=== PATIENT | male | born 1950 | race Caucasian/White ===

== ENCOUNTER 2016-12-06 14:16 | Emergency (ER) | payer MEDICARE ==
[2016-12-06 14:28] VITALS: BP 163/75
[2016-12-06] MEDS ORDERED: Diphtheria,Pertussis(Acell),Tetanus Vaccine 0.5 ML SDV IM ONE (14:41)
[2016-12-06] MEDS ORDERED: Lidocaine 1% with EPINEPHrine 1:100,000 50 ML MDV INFILT ONE (14:42)
--- NOTE | 2016-12-06 15:24 | EDM.PDOC ---
ED HPI GENERAL MEDICAL PROBLEM - General Chief Complaint: General Stated Complaint: FALL- LACERATION TO SCALP Time Seen by Provider: 12/06/16 14:30 Source of Information: Reports: Patient, Family History Limitations: Reports: No limitations - History of Present Illness INITIAL COMMENTS - FREE TEXT/NARRATIVE: 66-year-old male diabetic thinks he became hypoglycemic possibly combined with slipping on the ice he fell and struck the top of his scalp on a pole next to the sidewalk. He has a 9 cm irregular laceration of the scalp. No other injury or complaints. Onset: today Location: Reports: head Severity: moderate Associated Symptoms: Reports: other (Possibly hypoglycemic but a recheck of his glucose prior to coming in was 160.) Neck Pain Score (Numeric/FACES): 0 - Related Data Allergies Allergy/AdvReac Type Severity Reaction Status Date / Time No Known Allergies Allergy Verified 12/06/16 14:30 Home Meds: Home Meds Aspirin [Ecotrin] 81 mg PO DAILY 10/29/15 [History] Glucagon,Human Recombinant [Glucagon Emergency Kit] 1 mg INJECT ASDIRECTED PRN 10/29/15 [History] Insulin Glarg,Human.Rec.Analog [Lantus] 8 - 10 units SQ BEDTIME 10/29/15 [ History] Lisinopril/Hydrochlorothiazide [Lisinopril-Hctz 20-12.5 mg Tab] 1 tab PO DAILY 10/29/15 [History] Metoprolol Succinate 50 mg PO DAILY 10/29/15 [History] Multivitamin [Daily Multiple Vitamin] 1 tab PO DAILY 10/29/15 [History] Simvastatin [Simvastatin] 40 mg PO BEDTIME 10/29/15 [History] Insulin Aspart [NovoLOG] 1 dose SUBCUT ASDIRECTED 12/06/16 [History] Past Medical History Cardiovascular History: Reports: High cholesterol, Hypertension Genitourinary History: Reports: Other (see below) Other Genitourinary History: frequency Neurological History: Reports: Head trauma Endocrine/Metabolic History: Reports: Diabetes, type I - Infectious Disease History Infectious Disease History: Reports: Chicken pox Social & Family History - Tobacco Use Smoking Status *Q: Never Smoker - Alcohol Use Days Per Week of Alcohol Use: 7 Number of Drinks Per Day: 2 Total Drinks Per Week: 14 - Recreational Drug Use Recreational Drug Use: No ED ROS GENERAL - Review of Systems Review Of Systems: See Below Constitutional: Denies: fever Respiratory: Denies: shortness of breath GI/Abdominal: Denies: Abdominal pain, Nausea, Vomiting Musculoskeletal: Denies: neck pain Neurological: Denies: headache ED EXAM, GENERAL - Physical Exam Exam: See Below Exam Limited By: No limitations General Appearance: alert, no apparent distress Head: other (Patient is a 9 cm irregular scalp laceration on the frontal and left parietal scalp) Neck: supple Respiratory/Chest: no respiratory distress Neurological: alert, oriented Psychiatric: normal affect, normal mood Course - Vital Signs Last Recorded V/S: Last Vital Signs Temp 95.5 F 12/06/16 14:24 Pulse 74 12/06/16 14:24 Resp 16 12/06/16 14:24 BP 163/75 H 12/06/16 14:24 Pulse Ox 99 12/06/16 14:24 - Orders/Labs/Meds Orders: Active Orders 24 hr Category Date Time Status Vaccines to be Administered [RC] PER UNIT ROUTINE Care 12/06/16 14:42 Active GLUCOSE POC LAB TO COLLECT [POC] Stat Lab 12/06/16 14:47 Received Meds: Medications Discontinued Medications Generic Name Dose Route Start Last Admin Trade Name Binuq PRN Reason Stop Dose Admin Diphtheria/Tetanus/Acell Pertussis 0.5 ml 12/06/16 14:41 12/06/16 14:57 Adacel IM 12/06/16 14:42 0.5 ml .ONCE ONE Administration Lidocaine/Epinephrine 30 ml 12/06/16 14:42 12/06/16 14:57 Xylocaine 1% With Epinephrine 1:100,000 INFILT 12/06/16 14:43 30 ml ONETIME ONE Administration - Re-Assessments/Exams Free Text/Narrative Re-Assessment/Exam: 12/06/16 15:22 The laceration was cleaned with saline after anesthetizing with 1% lidocaine with epinephrine. 15 melissa were used to close the laceration. He was given a tetanus vaccination and can have the melissa removed in 10 days. Departure - Departure Time of Disposition: 15:57 Disposition: Home, Self-Care 01 Condition: good Clinical Impression: Laceration of scalp Qualifiers: Encounter type: initial encounter Qualified Code(s): S01.01XA - Laceration without foreign body of scalp, initial encounter Instructions: Laceration Care, Adult Referrals: Rafael Cooper MD [Primary Care Provider] - Forms: ED Department Discharge Care Plan Goals: Keep wound covered and clean while healing. Ice to the area may reduce swelling , return at any time if worsening or concerns. Melissa can be removed in 10 days, recheck sooner if concerns of infection or not healing satisfactorily. - My Orders Last 24 Hours: My Active Orders 12/06/16 14:42 Vaccines to be Administered [RC] PER UNIT ROUTINE 12/06/16 14:47 GLUCOSE POC LAB TO COLLECT [POC] Stat - Assessment/Plan Last 24 Hours: My Active Orders 12/06/16 14:42 Vaccines to be Administered [RC] PER UNIT ROUTINE 12/06/16 14:47 GLUCOSE POC LAB TO COLLECT [POC] Stat
== END 2016-12-06 15:35 | disposition home or self-care (01) ==
LOC: JP.ED 14:16
DX: S01.01XA Laceration without foreign body of scalp, initial encounter (principal); I10 Essential (primary) hypertension; E78.00 Pure hypercholesterolemia, unspecified; E10.9 Type 1 diabetes mellitus without complications; Z79.4 Long term (current) use of insulin; Z79.82 Long term (current) use of aspirin; Z79.899 Other long term (current) drug therapy; W01.198A Fall on same level from slipping, tripping and stumbling with subsequent striking against other object, initial encounter
CPT/HCPCS: 12004; 82962; 90471; 90715; 99282-25; 99284-25

== ENCOUNTER 2018-12-11 10:36 | Emergency (ER) | payer MEDICARE ==
--- NOTE | 2018-12-11 11:23 | EDM.PDOC ---
ED HPI GENERAL MEDICAL PROBLEM - General Chief Complaint: Skin Complaint Stated Complaint: HIVES Time Seen by Provider: 12/11/18 11:05 Source of Information: Reports: Patient, Old Records, RN History Limitations: Reports: No Limitations - History of Present Illness INITIAL COMMENTS - FREE TEXT/NARRATIVE: 68 yo male presents with a progressive rash he has had for about 2 weeks. Has been to the clinic a couple times and did not get any benefit from prednisone 20 mg qd x 5 days. He has pruritis now so comes to the ER. Has a derm appt tomorrow. Has not had any testing done to date. No difficulty with breathing or swallowing. No fever. 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) (none today.) - Related Data Allergies Allergy/AdvReac Type Severity Reaction Status Date / Time No Known Allergies Allergy Verified 12/11/18 10:53 Home Meds: Home Meds Aspirin [Ecotrin] 81 mg PO DAILY 10/29/15 [History] Glucagon,Human Recombinant [Glucagon Emergency Kit] 1 mg INJECT ASDIRECTED PRN 10/29/15 [History] Insulin Glarg,Human.Rec.Analog [Lantus] 8 - 10 units SQ BEDTIME 10/29/15 [ History] Lisinopril/Hydrochlorothiazide [Lisinopril-Hctz 20-12.5 mg Tab] 1 tab PO DAILY 10/29/15 [History] Metoprolol Succinate 50 mg PO DAILY 10/29/15 [History] Multivitamin [Daily Multiple Vitamin] 1 tab PO DAILY 10/29/15 [History] Simvastatin 40 mg PO BEDTIME 10/29/15 [History] Insulin Aspart [NovoLOG] 1 dose SUBCUT ASDIRECTED 12/06/16 [History] Gabapentin [Neurontin] 12/11/18 [History] Past Medical History Cardiovascular History: Reports: High Cholesterol, Hypertension Genitourinary History: Reports: Other (See Below) Other Genitourinary History: frequency Neurological History: Reports: Head Trauma Endocrine/Metabolic History: Reports: Diabetes, Type I - Infectious Disease History Infectious Disease History: Reports: Chicken Pox Social & Family History - Tobacco Use Smoking Status *Q: Never Smoker ED ROS GENERAL - Review of Systems Review Of Systems: See Below Constitutional: Reports: No Symptoms HEENT: Reports: No Symptoms Respiratory: Reports: No Symptoms Cardiovascular: Reports: No Symptoms GI/Abdominal: Reports: No Symptoms : Reports: No Symptoms Skin: Reports: Pruritis, Rash, Erythema. Denies: Urticaria Neurological: Reports: No Symptoms ED EXAM, SKIN/RASH Exam: See Below Exam Limited By: No Limitations General Appearance: Alert, WD/WN, No Apparent Distress Eye Exam: Bilateral Eye: Conjunctival Injection (apparently chronic), PERRL Ears: Normal External Exam, Normal Canal, Hearing Grossly Normal Nose: Normal Inspection, Normal Mucosa, No Blood Throat/Mouth: Normal Inspection, Normal Lips, Normal Oropharynx, Normal Voice, No Airway Compromise Head: Atraumatic, Normocephalic Neck: Normal Inspection Respiratory/Chest: No Respiratory Distress, Lungs Clear, Normal Breath Sounds, No Accessory Muscle Use Cardiovascular: Regular Rate, Rhythm, No Edema Extremities: Normal Inspection Neurological: Alert, Oriented, CN II-XII Intact, Normal Cognition, No Motor/ Sensory Deficits Psychiatric: Normal Affect, Normal Mood Skin: Warm, Dry, Intact, Erythema, Rash (confluent and involves most of his skin on trunk and extrems.). No: Normal Color, No Rash Location, Skin: Generalized Characteristics: Macular, Confluent, Erythematous. No: Urticarial, Petechial Associated features: No: Warmth, Tenderness, Swelling, Induration Lymphatic: No Adenopathy Course - Vital Signs Last Recorded V/S: Last Vital Signs Temp 36.7 C 12/11/18 11:02 Pulse 78 12/11/18 14:18 Resp 14 12/11/18 14:18 BP 173/65 H 12/11/18 14:18 Pulse Ox 96 12/11/18 11:02 - Orders/Labs/Meds Labs: Laboratory Tests 12/11/18 12/11/18 12/11/18 Range/Units 11:40 11:40 14:14 WBC 10.5 (4.5-11.0) K/uL RBC 4.19 L (4.30-5.90) M/uL Hgb 12.9 (12.0-15.0) g/dL Hct 39.9 L (40.0-54.0) % MCV 95 (80-98) fL MCH 31 (27-31) pg MCHC 32 (32-36) % Plt Count 200 (150-400) K/uL Sodium 135 L (140-148) mmol/L Potassium 5.5 H (3.6-5.2) mmol/L Chloride 99 L (100-108) mmol/L Carbon Dioxide 24 (21-32) mmol/L Anion Gap 17.5 H (5.0-14.0) mmol/L BUN 47 H D (7-18) mg/dL Creatinine 1.9 H (0.8-1.3) mg/dL Est Cr Clr Drug Dosing 42.06 mL/min Estimated GFR (MDRD) 35 L (>60) Glucose 241 H (74-106) mg/dL Calcium 9.4 (8.5-10.1) mg/dL Urine Color Yellow Urine Appearance Slightly cloudy Urine pH 5.0 (4.5-8.0) Ur Specific [place] 1.020 (1.008-1.030) Urine Protein Negative (NEGATIVE) mg/dL Urine Glucose (UA) 250 H (NEGATIVE) mg/dL Urine Ketones 50 H (NEGATIVE) mg/dL Urine Occult Blood Trace (NEGATIVE) Urine Nitrite Negative (NEGAITVE) Urine Bilirubin Small (NEGATIVE) Urine Urobilinogen 1 (NORMAL) mg/dL Ur Leukocyte Esterase Negative (NEGATIVE) Urine RBC 0-5 (0-5) Urine WBC Not seen (0-5) Ur Epithelial Cells Not seen Amorphous Sediment Not seen Urine Bacteria Not seen Urine Mucus Moderate Meds: Medications Discontinued Medications Generic Name Dose Route Start Last Admin Trade Name Freq PRN Reason Stop Dose Admin Hydroxyzine HCl 75 mg 12/11/18 11:12 12/11/18 11:28 Vistaril IM 12/11/18 11:13 75 mg ONETIME ONE Administration Sodium Chloride 1,000 mls @ 1,000 mls/hr 12/11/18 12:13 12/11/18 12:55 Normal Saline IV 12/11/18 13:12 1,000 mls/hr .BOLUS ONE Administration Sodium Chloride 1,000 mls @ 1,000 mls/hr 12/11/18 14:01 Normal Saline IV 12/11/18 15:00 .BOLUS ONE Departure - Departure Time of Disposition: 14:30 Disposition: Home, Self-Care 01 Condition: Fair Clinical Impression: Rash and nonspecific skin eruption, Hyperkalemia, Chronic renal failure, stage 3 (moderate), Elevated blood sugar - Discharge Information *PRESCRIPTION DRUG MONITORING PROGRAM REVIEWED*: No *COPY OF PRESCRIPTION DRUG MONITORING REPORT IN PATIENT VASU: No Referrals: Rafael Cooper MD [Primary Care Provider] - Forms: ED Department Discharge Additional Instructions: Continue your hydroxyzine 50 mg every 6 hrs as needed for itching. Keep your appt for tomorrow with dermatology. See your doctor for blood pressure recheck later this week. Avoid foods high in potassium due to today's elevated levels.
[2018-12-11] MEDS: hydrOXYzine HCl 100 MG/2 ML SDV IM ONE (11:28)
[2018-12-11] MEDS: Sodium Chloride 0.9% 1,000 ML IV ONE (12:55)
[2018-12-11] MEDS ORDERED: Sodium Chloride 0.9% 1,000 ML IV ONE (14:01)
[2018-12-11 14:19] VITALS: BP 173/65
== END 2018-12-11 15:34 | disposition home or self-care (01) ==
LOC: JP.ED 10:36
DX: R23.8 Other skin changes (principal); E87.5 Hyperkalemia; I12.9 Hypertensive chronic kidney disease with stage 1 through stage 4 chronic kidney disease, or unspecified chronic kidney disease; N18.3 Chronic kidney disease, stage 3 (moderate); E10.22 Type 1 diabetes mellitus with diabetic chronic kidney disease; Z79.82 Long term (current) use of aspirin; Z79.899 Other long term (current) drug therapy
CPT/HCPCS: 36415; 80048; 81001; 85027; 96360; 96372; 99282; J3410; J7030

== ENCOUNTER 2019-02-03 16:36 | Emergency (ER) | payer MEDICARE ==
[2019-02-03] MEDS ORDERED: LORazepam 2 MG/ML SDV IVPUSH ONE (17:56)
[2019-02-03] MEDS ORDERED: Sodium Chloride 0.9% 10 ML Syringe FLUSH PRN (17:56)
--- NOTE | 2019-02-03 18:15 | EDM.PDOC ---
ED HPI GENERAL MEDICAL PROBLEM - General Chief Complaint: General Stated Complaint: Heart doesn't feel right, Time Seen by Provider: 02/03/19 18:07 Source of Information: Reports: Patient, Family History Limitations: Reports: No Limitations - History of Present Illness INITIAL COMMENTS - FREE TEXT/NARRATIVE: Patient brought by family describing shaking/arm spasms today. He has been have periodic facial grimacing/arm flexion spasms that last 5-10 seconds. No prior occurrence. The patient has a history of diabetes and sometimes gets shaky when glucose is low. He has had multiple episodes of spasms/skaking. He remains conscious through the episodes. Onset: Today Onset Date: 02/03/19 Onset Time: 07:00 Duration: Intermittent Location: Reports: Face, Upper Extremity, Left, Upper Extremity, Right Severity: Mild Improves with: Reports: None Worsens with: Reports: None Context: Reports: Other Associated Symptoms: Denies: Confusion, Fever/Chills, Headaches denies Pain Score (Numeric/FACES): 0 - Related Data Allergies Allergy/AdvReac Type Severity Reaction Status Date / Time No Known Allergies Allergy Verified 02/03/19 17:03 Home Meds: Home Meds Aspirin [Ecotrin] 81 mg PO DAILY 10/29/15 [History] Glucagon,Human Recombinant [Glucagon Emergency Kit] 1 mg INJECT ASDIRECTED PRN 10/29/15 [History] Insulin Glarg,Human.Rec.Analog [Lantus] 8 - 10 units SQ BEDTIME 10/29/15 [ History] Lisinopril/Hydrochlorothiazide [Lisinopril-Hctz 20-12.5 mg Tab] 1 tab PO DAILY 10/29/15 [History] Metoprolol Succinate 50 mg PO DAILY 10/29/15 [History] Multivitamin [Daily Multiple Vitamin] 1 tab PO DAILY 10/29/15 [History] Simvastatin 40 mg PO BEDTIME 10/29/15 [History] Insulin Aspart [NovoLOG] 1 dose SUBCUT ASDIRECTED 12/06/16 [History] Gabapentin [Neurontin] 1 tab PO DAILY 12/11/18 [History] Magnesium Oxide [Magnesium] 400 mg PO DAILY 02/03/19 [History] Terbinafine HCl [Terbinafine] 250 mg PO DAILY 02/03/19 [History] cycloSPORINE [Cyclosporine] 100 mg PO DAILY 02/03/19 [History] hydrOXYzine pamoate [Hydroxyzine Pamoate] 50 mg PO QID PRN 02/03/19 [History] Past Medical History HEENT History: Reports: Impaired Vision Cardiovascular History: Reports: High Cholesterol, Hypertension Genitourinary History: Reports: Other (See Below) Other Genitourinary History: frequency Neurological History: Reports: Head Trauma Endocrine/Metabolic History: Reports: Diabetes, Type I Immunologic History: Reports: Other (See Below) 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 Dermatologic History: Reports: Other (See Below) Other Dermatologic History: Red flaky skin. Total body red skin past 2 to 3 momths. - Infectious Disease History Infectious Disease History: Reports: Chicken Pox Social & Family History - Tobacco Use Smoking Status *Q: Never Smoker Second Hand Smoke Exposure: No - Caffeine Use Caffeine Use: Reports: Coffee, Soda - Alcohol Use Days Per Week of Alcohol Use: 7 Number of Drinks Per Day: 4 Total Drinks Per Week: 28 - Recreational Drug Use Recreational Drug Use: No ED ROS GENERAL - Review of Systems Review Of Systems: See Below Constitutional: Reports: No Symptoms, Weakness HEENT: Reports: No Symptoms Respiratory: Reports: No Symptoms Endocrine: Denies: No Symptoms GI/Abdominal: Denies: Distension, Nausea, Vomiting Musculoskeletal: Reports: Other (Arm flexion during episodes with facial grimacing) Skin: Reports: Other Neurological: Reports: No Symptoms, Other (Arm spasms/shakes) Psychiatric: Reports: No Symptoms ED EXAM, GENERAL - Physical Exam Exam: See Below Free Text/Narrative:: Intermittent elbow flexion and facial grimacing while being examined. Exam Limited By: Other (Episodes of shaking) General Appearance: Mild Distress Ears: Normal External Exam Respiratory/Chest: No Respiratory Distress Cardiovascular: Normal Peripheral Pulses, Tachycardia GI/Abdominal: Normal Bowel Sounds Back Exam: Normal Inspection Extremities: Other (Good tone of arm muscles) Course - Vital Signs Last Recorded V/S: Last Vital Signs Temp 36.5 C 02/03/19 17:11 Pulse 95 02/03/19 19:52 Resp 17 02/03/19 19:41 BP 190/87 H 02/03/19 19:52 Pulse Ox 96 02/03/19 19:41 - Orders/Labs/Meds Orders: Active Orders 24 hr Category Date Time Status Cardiac Monitoring [RC] .As Directed Care 02/03/19 17:18 Active Saline Lock Insert [OM.PC] Routine Oth 02/03/19 17:56 Ordered Labs: Laboratory Tests 02/03/19 02/03/19 02/03/19 Range/Units 17:24 17:24 17:24 WBC 7.1 (4.5-11.0) K/uL RBC 4.20 L (4.30-5.90) M/uL Hgb 12.3 (12.0-15.0) g/dL Hct 39.2 L (40.0-54.0) % MCV 93 (80-98) fL MCH 29 (27-31) pg MCHC 31 L (32-36) % Plt Count 225 (150-400) K/uL Neut % (Auto) (36-66) % Lymph % (Auto) (24-44) % Wheeler % (Auto) (2-6) % Eos % (Auto) (2-4) % Baso % (Auto) (0-1) % Sodium 145 (140-148) mmol/L Potassium 4.6 (3.6-5.2) mmol/L Chloride 107 (100-108) mmol/L Carbon Dioxide 25 (21-32) mmol/L Anion Gap 12.6 (5.0-14.0) mmol/L BUN 54 H (7-18) mg/dL Creatinine 2.4 H (0.8-1.3) mg/dL Est Cr Clr Drug Dosing 33.30 mL/min Estimated GFR (MDRD) 27 L (>60) Glucose 84 (74-106) mg/dL Calcium 9.7 (8.5-10.1) mg/dL Total Bilirubin (0.2-1.0) mg/dL AST (15-37) U/L ALT (12-78) U/L Alkaline Phosphatase (46-116) U/L Troponin I < 0.017 (0.000-0.056) ng/mL Total Protein (6.4-8.2) g/dL Albumin (3.4-5.0) g/dL Globulin (2.3-3.5) g/dL Albumin/Globulin Ratio (1.2-2.2) Urine Color Urine Appearance Urine pH (4.5-8.0) Ur Specific [place] (1.008-1.030) Urine Protein (NEGATIVE) mg/dL Urine Glucose (UA) (NEGATIVE) mg/dL Urine Ketones (NEGATIVE) mg/dL Urine Occult Blood (NEGATIVE) Urine Nitrite (NEGAITVE) Urine Bilirubin (NEGATIVE) Urine Urobilinogen (NORMAL) mg/dL Ur Leukocyte Esterase (NEGATIVE) Urine RBC (0-5) Urine WBC (0-5) Ur Epithelial Cells Amorphous Sediment Urine Bacteria Urine Mucus Urine Opiates Screen (NEGATIVE) Ur Oxycodone Screen (NEGATIVE) Urine Methadone Screen (NEGATIVE) Ur Propoxyphene Screen (NEGATIVE) Ur Barbiturates Screen (NEGATIVE) Ur Tricyclics Screen (NEGATIVE) Ur Phencyclidine Scrn (NEGATIVE) Ur Amphetamine Screen (NEGATIVE) U Methamphetamines Scrn (NEGATIVE) Urine MDMA Screen (NEGATIVE) U Benzodiazepines Scrn (NEGATIVE) U Cocaine Metab Screen (NEGATIVE) U Marijuana (THC) Screen (NEGATIVE) 02/03/19 02/03/19 02/03/19 Range/Units 18:18 18:18 18:21 WBC 7.3 (4.5-11.0) K/uL RBC 4.09 L (4.30-5.90) M/uL Hgb 12.3 (12.0-15.0) g/dL Hct 38.4 L (40.0-54.0) % MCV 94 (80-98) fL MCH 30 (27-31) pg MCHC 32 (32-36) % Plt Count 220 (150-400) K/uL Neut % (Auto) 66 (36-66) % Lymph % (Auto) 17 L (24-44) % [place] % (Auto) 11 H (2-6) % Eos % (Auto) 6 H (2-4) % Baso % (Auto) 0 (0-1) % Sodium 144 (140-148) mmol/L Potassium 4.6 (3.6-5.2) mmol/L Chloride 106 (100-108) mmol/L Carbon Dioxide 23 (21-32) mmol/L Anion Gap 14.6 H (5.0-14.0) mmol/L BUN 54 H (7-18) mg/dL Creatinine 2.4 H (0.8-1.3) mg/dL Est Cr Clr Drug Dosing 33.30 mL/min Estimated GFR (MDRD) 27 L (>60) Glucose 83 (74-106) mg/dL Calcium 9.6 (8.5-10.1) mg/dL Total Bilirubin 0.5 (0.2-1.0) mg/dL AST 33 (15-37) U/L ALT 28 (12-78) U/L Alkaline Phosphatase 135 H (46-116) U/L Troponin I (0.000-0.056) ng/mL Total Protein 7.4 (6.4-8.2) g/dL Albumin 3.6 (3.4-5.0) g/dL Globulin 3.8 H (2.3-3.5) g/dL Albumin/Globulin Ratio 1.0 L (1.2-2.2) Urine Color Yellow Urine Appearance Clear Urine pH 7.0 (4.5-8.0) Ur Specific [place] 1.010 (1.008-1.030) Urine Protein Trace (NEGATIVE) mg/dL Urine Glucose (UA) Normal (NEGATIVE) mg/dL Urine Ketones Negative (NEGATIVE) mg/dL Urine Occult Blood Trace (NEGATIVE) Urine Nitrite Negative (NEGAITVE) Urine Bilirubin Negative (NEGATIVE) Urine Urobilinogen Normal (NORMAL) mg/dL Ur Leukocyte Esterase Small (NEGATIVE) Urine RBC 0-5 (0-5) Urine WBC Not seen (0-5) Ur Epithelial Cells Not seen Amorphous Sediment Not seen Urine Bacteria Rare Urine Mucus Not seen Urine Opiates Screen (NEGATIVE) Ur Oxycodone Screen (NEGATIVE) Urine Methadone Screen (NEGATIVE) Ur Propoxyphene Screen (NEGATIVE) Ur Barbiturates Screen (NEGATIVE) Ur Tricyclics Screen (NEGATIVE) Ur Phencyclidine Scrn (NEGATIVE) Ur Amphetamine Screen (NEGATIVE) U Methamphetamines Scrn (NEGATIVE) Urine MDMA Screen (NEGATIVE) U Benzodiazepines Scrn (NEGATIVE) U Cocaine Metab Screen (NEGATIVE) U Marijuana (THC) Screen (NEGATIVE) 02/03/19 Range/Units 18:25 WBC (4.5-11.0) K/uL RBC (4.30-5.90) M/uL Hgb (12.0-15.0) g/dL Hct (40.0-54.0) % MCV (80-98) fL MCH (27-31) pg MCHC (32-36) % Plt Count (150-400) K/uL Neut % (Auto) (36-66) % Lymph % (Auto) (24-44) % [place] % (Auto) (2-6) % Eos % (Auto) (2-4) % Baso % (Auto) (0-1) % Sodium (140-148) mmol/L Potassium (3.6-5.2) mmol/L Chloride (100-108) mmol/L Carbon Dioxide (21-32) mmol/L Anion Gap (5.0-14.0) mmol/L BUN (7-18) mg/dL Creatinine (0.8-1.3) mg/dL Est Cr Clr Drug Dosing mL/min Estimated GFR (MDRD) (>60) Glucose (74-106) mg/dL Calcium (8.5-10.1) mg/dL Total Bilirubin (0.2-1.0) mg/dL AST (15-37) U/L ALT (12-78) U/L Alkaline Phosphatase (46-116) U/L Troponin I (0.000-0.056) ng/mL Total Protein (6.4-8.2) g/dL Albumin (3.4-5.0) g/dL Globulin (2.3-3.5) g/dL Albumin/Globulin Ratio (1.2-2.2) Urine Color Urine Appearance Urine pH (4.5-8.0) Ur Specific [place] (1.008-1.030) Urine Protein (NEGATIVE) mg/dL Urine Glucose (UA) (NEGATIVE) mg/dL Urine Ketones (NEGATIVE) mg/dL Urine Occult Blood (NEGATIVE) Urine Nitrite (NEGAITVE) Urine Bilirubin (NEGATIVE) Urine Urobilinogen (NORMAL) mg/dL Ur Leukocyte Esterase (NEGATIVE) Urine RBC (0-5) Urine WBC (0-5) Ur Epithelial Cells Amorphous Sediment Urine Bacteria Urine Mucus Urine Opiates Screen Negative (NEGATIVE) Ur Oxycodone Screen Negative (NEGATIVE) Urine Methadone Screen Negative (NEGATIVE) Ur Propoxyphene Screen Negative (NEGATIVE) Ur Barbiturates Screen Negative (NEGATIVE) Ur Tricyclics Screen Negative (NEGATIVE) Ur Phencyclidine Scrn Negative (NEGATIVE) Ur Amphetamine Screen Negative (NEGATIVE) U Methamphetamines Scrn Negative (NEGATIVE) Urine MDMA Screen Negative (NEGATIVE) U Benzodiazepines Scrn Negative (NEGATIVE) U Cocaine Metab Screen Negative (NEGATIVE) U Marijuana (THC) Screen Negative (NEGATIVE) Meds: Medications Discontinued Medications Generic Name Dose Route Start Last Admin Trade Name Ashley PRN Reason Stop Dose Admin Lorazepam 1 mg 02/03/19 17:56 02/03/19 18:19 Ativan IVPUSH 02/03/19 17:57 1 mg ONETIME ONE Administration Sodium Chloride 10 ml 02/03/19 17:56 02/03/19 18:18 Saline Flush FLUSH 10 ml ASDIRECTED PRN Administration Keep Vein Open - Re-Assessments/Exams Free Text/Narrative Re-Assessment/Exam: Initially, both told me that the behavior occurring was NOT typical for his low glucose. He got a value of 160 this afternoon and then took 7 units of insulin. Eventually, they both said that he can get they way he was from low glucose. This was after lab draw showed a glucose value of 32. He was given juice, milk and food. Later, his glucose was 180 and he felt much better. He states that he varies his Lantus most days based on what he eats/how he feels. I recommended staying with a fixed Lantus dose and using short--acting insulin around eating times. His day to day variation in dosing may be one reason that his values have been variable. Both state that his eyesight is getting worse and consequently he may not be drawing his doses correctly. He felt quite a bit better and was ready for discharge. 02/04/19 03:04 Departure - Departure Time of Disposition: 21:05 Disposition: Home, Self-Care 01 Condition: Good Clinical Impression: Hypoglycemia, Chronic renal failure, stage 3 (moderate) - Discharge Information *PRESCRIPTION DRUG MONITORING PROGRAM REVIEWED*: Not Applicable *COPY OF PRESCRIPTION DRUG MONITORING REPORT IN PATIENT VASU: Not Applicable Instructions: Hypoglycemia, [id number] Referrals: Rafael Cooper MD [Primary Care Provider] - Forms: ED Department Discharge Additional Instructions: Keep your Lantus at one dose all the time. Use short-acting insulin to cover your blood sugar variations. Recheck kidney function tests with Dr. Cooper in 5 days. Return to ER if feeling worse. Care Plan Goals: See discharge plan. - Problem List & Annotations (1) Rash and nonspecific skin eruption SNOMED Code(s): 895246644 Code(s): R21 - RASH AND OTHER NONSPECIFIC SKIN ERUPTION Status: Acute (2) Chronic renal failure, stage 3 (moderate) SNOMED Code(s): 63361012, 875178474 Code(s): N18.3 - CHRONIC KIDNEY DISEASE, STAGE 3 (MODERATE) Status: Chronic (3) Hypoglycemia SNOMED Code(s): 887309995 Code(s): E16.2 - HYPOGLYCEMIA, UNSPECIFIED Status: Acute - Problem List Review Problem List Initiated/Reviewed/Updated: Yes - Assessment/Plan Plan: See discharge plan.
[2019-02-03 19:52] VITALS: BP 190/87
--- NOTE | 2019-02-03 19:56 | CRLCT ---
INDICATION: New onset seizure TECHNIQUE: CT head without contrast. COMPARISON: 10/29/2015 FINDINGS: There is age related cortical atrophy with mild proportionate ventriculomegaly. There is no mass effect or midline shift. White matter hypodensities are suggestive of chronic small vessel ischemic changes. There is no loss of isidro-white differentiation. There is no evidence of an acute intracranial hemorrhage. Few foci of gas in the left cavernous region could be related to IV access. No acute calvarial fracture is seen. The visualized paranasal sinuses and mastoid air cells are clear. The visualized orbits are within normal limits. IMPRESSION: No evidence of an acute intracranial hemorrhage, mass effect or loss of isidro-white differentiation. Age-related atrophy and chronic ischemic changes. Please note that MRI is more sensitive for evaluation of seizures. Dictated by Goldy Pa MD @ 02/03/2019 7:45:58 PM Please note that all CT scans at this facility use dose modulation, iterative reconstruction, and/or weight-based dosing when appropriate to reduce radiation dose to as low as reasonably achievable. Dictated by: Goldy Pa MD @ 02/03/2019 19:54:09 (Electronically Signed)
== END 2019-02-03 21:30 | disposition home or self-care (01) ==
LOC: JP.ED 16:36
DX: E10.649 Type 1 diabetes mellitus with hypoglycemia without coma (principal); I12.9 Hypertensive chronic kidney disease with stage 1 through stage 4 chronic kidney disease, or unspecified chronic kidney disease; N18.3 Chronic kidney disease, stage 3 (moderate); E10.22 Type 1 diabetes mellitus with diabetic chronic kidney disease; Z79.82 Long term (current) use of aspirin; Z79.899 Other long term (current) drug therapy
CPT/HCPCS: 36415; 70450; 80048; 80053; 80305; 81001; 82962; 84484; 85025; 85027; 96374; 99284; J2060

== ENCOUNTER 2020-12-10 02:41 | Emergency (ER) | payer MEDICARE ==
[2020-12-10 03:00] VITALS: BP 166/92; PULSE 77
--- NOTE | 2020-12-10 03:08 | EDM.PDOC ---
ED HPI GENERAL MEDICAL PROBLEM - General Chief Complaint: General Stated Complaint: MEDICAL VIA [facility] Time Seen by Provider: 12/10/20 02:45 Source of Information: Reports: Patient, EMS History Limitations: Reports: No Limitations - History of Present Illness INITIAL COMMENTS - FREE TEXT/NARRATIVE: 70-year-old male, on insulin for 35 years with previous hypoglycemic episodes developed hypoglycemia while in bed at home. He was having snoring respirations and was unresponsive so his called EMS. He was given 1 mg of glucagon and some IV D5 W. His glucose was 25 at home. It is now normal, he is ambulating and feels fine. He claims that at 4 PM he checked his glucose and it was 180 so he took a few extra units of Humalog and then took his normal dose of Lantus tonight. He has been eating his meals normally. 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: See EMS Report - Related Data Allergies Allergy/AdvReac Type Severity Reaction Status Date / Time No Known Allergies Allergy Verified 12/10/20 02:49 Home Meds: Home Meds Glucagon,Human Recombinant [Glucagon Emergency Kit] 1 mg INJECT ASDIRECTED PRN 10/29/15 [History] Insulin Glarg,Human.Rec.Analog [Lantus] 8 - 10 units SQ BEDTIME 10/29/15 [History] Lisinopril/Hydrochlorothiazide [Lisinopril-Hctz 20-12.5 mg Tab] 1 tab PO DAILY 10/29/15 [History] Metoprolol Succinate 50 mg PO DAILY 10/29/15 [History] Insulin Aspart [NovoLOG] 1 dose SUBCUT ASDIRECTED 12/06/16 [History] Gabapentin [Neurontin] 1 tab PO DAILY 12/11/18 [History] Terbinafine HCl [Terbinafine] 250 mg PO DAILY 02/03/19 [History] Rosuvastatin [Crestor] 10 mg PO DAILY 12/10/20 [History] amLODIPine [Norvasc] 5 mg PO DAILY 12/10/20 [History] Past Medical History HEENT History: Reports: Impaired Vision Cardiovascular History: Reports: High Cholesterol, Hypertension Genitourinary History: Reports: Other (See Below) Other Genitourinary History: frequency Neurological History: Reports: Head Trauma Endocrine/Metabolic History: Reports: Diabetes, Type I Immunologic History: Reports: Other (See Below) 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 Dermatologic History: Reports: Other (See Below) Other Dermatologic History: Red flaky skin. Total body red skin past 2 to 3 momths. - Infectious Disease History Infectious Disease History: Reports: Chicken Pox Social & Family History - Tobacco Use Tobacco Use Status *Q: Never Tobacco User - Caffeine Use Caffeine Use: Reports: Coffee Caffeine Use Comment: 2 cups per morning - Recreational Drug Use Recreational Drug Use: No ED ROS GENERAL - Review of Systems Review Of Systems: See Below Constitutional: Denies: Fever, Chills HEENT: Denies: Vision Change Respiratory: Denies: Shortness of Breath GI/Abdominal: Denies: Abdominal Pain, Nausea, Vomiting Skin: Reports: No Symptoms Neurological: Denies: Headache Psychiatric: Reports: No Symptoms ED EXAM, GENERAL - Physical Exam Exam: See Below Exam Limited By: No Limitations General Appearance: Alert, No Apparent Distress Eye Exam: Bilateral Eye: Normal Inspection Head: Atraumatic, Normocephalic Neck: Supple, Non-Tender Respiratory/Chest: No Respiratory Distress, Lungs Clear Cardiovascular: Regular Rate, Rhythm. No: Tachycardia GI/Abdominal: Soft, Non-Tender Neurological: Alert, Oriented, No Motor/Sensory Deficits Psychiatric: Normal Affect, Normal Mood Course - Vital Signs Last Recorded V/S: Last Vital Signs Temp 97.4 F 12/10/20 02:56 Pulse 77 12/10/20 02:56 Resp 16 12/10/20 02:56 BP 166/92 H 12/10/20 02:56 Pulse Ox 98 12/10/20 02:56 - Re-Assessments/Exams Free Text/Narrative Re-Assessment/Exam: 12/10/20 03:06 Patient is to be discharged and continue his current medications and monitor closely for additional hypoglycemia. Departure - Departure Time of Disposition: 03:16 Disposition: Home, Self-Care 01 Clinical Impression: Hypoglycemia - Discharge Information Instructions: Hypoglycemia, [id number] Referrals: PCP,None [Primary Care Provider] - Forms: ED Department Discharge Care Plan Goals: Follow your blood sugar closely to avoid further hypoglycemia. Return if symptoms recur, you may need some adjustments to your insulin. Sepsis Event Note (ED) - Evaluation Sepsis Screening Result: No Definite Risk - Focused Exam Vital Signs: Vital Signs Temp Pulse Resp BP Pulse Ox 12/10/20 02:56 97.4 F 77 16 166/92 H 98
== END 2020-12-10 04:18 | disposition home or self-care (01) ==
LOC: JP.ED 02:41
DX: E10.649 Type 1 diabetes mellitus with hypoglycemia without coma (principal); E78.00 Pure hypercholesterolemia, unspecified; I10 Essential (primary) hypertension; Z79.899 Other long term (current) drug therapy
CPT/HCPCS: 99284; 99285

== ENCOUNTER 2023-04-18 15:28 | Emergency (ER) | payer MEDICARE ==
[2023-04-18 16:24] LABS: HEMATOCRIT 36.4 % (38.4-49.7); HEMOGLOBIN 12.7 g/dL (12.9-16.9); MEAN CORPUSCULAR HEMOGLOBIN 31.5 pg (31.6-35.5); MEAN CORPUSCULAR HGB CONC 34.9 g/dL (31.6-35.5); MEAN CORPUSCULAR VOLUME 90.3 fL (81.4-99.0); RED BLOOD CELL COUNT 4.03 M/uL (4.14-5.76); WHITE BLOOD CELL COUNT,WBC 6.8 K/uL (3.2-11.0)
[2023-04-18 16:39] LABS: CREATININE 1.7 mg/dL (0.8-1.3); EST CRCL DRUG DOSING (CG) 41.84 mL/min; POTASSIUM,K 5.1 mmol/L (3.6-5.2)
[2023-04-18 16:41] LABS: ANION GAP 17.1 mmol/L (5.0-14.0)
[2023-04-18] MEDS ORDERED: Sodium Chloride 0.9% 1,000 ML IV ONE (16:46)
[2023-04-18 17:05] LABS: APPEARANCE,URINE CLEAR (CLEAR); BILIRUBIN,URINE NEGATIVE (NEGATIVE); COLOR,URINE YELLOW (YELLOW); GLUCOSE,URINE NEGATIVE (NEGATIVE); KETONES,URINE NEGATIVE (NEGATIVE); LEUKOCYTE ESTERASE,URINE NEGATIVE (NEGATIVE); NITRITE,URINE NEGATIVE (NEGATIVE); OCCULT BLOOD,URINE NEGATIVE (NEGATIVE); PH,URINE 5.5 (5.0-8.0); PROTEIN,URINE 100 mg/dL (NEGATIVE); UROBILINOGEN,URINE 0.2 EU/dL (0.2-1.0)
[2023-04-18 17:08] VITALS: PULSE 89
[2023-04-18 17:10] LABS: AMORPHOUS SEDIMENT,URINE NOT SEEN; BACTERIA,URINE NOT SEEN; EPITHELIAL CELLS,URINE RARE; MUCUS,URINE RARE; RBC,URINE 0-5 (0-5); WBC,URINE NOT SEEN (0-5)
[2023-04-18 18:08] VITALS: BP 147/74
== END 2023-04-18 18:19 | disposition home or self-care (01) ==
LOC: JP.ED 15:28
DX: E10.649 Type 1 diabetes mellitus with hypoglycemia without coma (principal); E78.00 Pure hypercholesterolemia, unspecified; I10 Essential (primary) hypertension; Z79.4 Long term (current) use of insulin; W19.XXXA Unspecified fall, initial encounter; Y92.009 Unspecified place in unspecified non-institutional (private) residence as the place of occurrence of the external cause
CPT/HCPCS: 36415; 70450; 72125; 72128; 76377; 80048; 81001; 85027; 96360; 99285; J7030

== ENCOUNTER 2023-12-29 11:46 | Inpatient (IN) | payer MEDICARE ==
[2023-12-29 13:14] LABS: CORONAVIRUS COVID-19 NAA NEGATIVE (NEGATIVE); INFLUENZA A NAA NEGATIVE (NEGATIVE); INFLUENZA B NAA NEGATIVE (NEGATIVE); RESPIRATORY SYNCYTIAL VIR NAA NEGATIVE (NEGATIVE)
[2023-12-29 13:37] LABS: BASOPHILS ABSOLUTE AUTO 0.03 K/uL (0.00-0.10); BASOPHILS PERCENT AUTO 0.4 % (0.1-1.3); EOSINOPHILS ABSOLUTE AUTO 0.05 K/uL (0.00-0.40); EOSINOPHILS PERCENT AUTO 0.7 % (0.0-5.4); HEMATOCRIT 34.4 % (38.4-49.7); HEMOGLOBIN 11.2 g/dL (12.9-16.9); IMMATURE GRAN ABSOLUTE AUTO 0.03 K/uL (0.00-0.23); IMMATURE GRAN PERCENT AUTO 0.4 % (0.0-0.7); LYMPHOCYTES PERCENT AUTO 9.4 % (11.4-47.7); MEAN CORPUSCULAR HEMOGLOBIN 31.1 pg (31.6-35.5); MEAN CORPUSCULAR HGB CONC 32.6 g/dL (31.6-35.5); MEAN CORPUSCULAR VOLUME 95.6 fL (81.4-99.0); MONOCYTES ABSOLUTE AUTO 0.59 K/uL (0.20-0.90); MONOCYTES PERCENT AUTO 7.9 % (3.3-12.6); NEUTROPHILS ABSOLUTE AUTO 6.06 K/uL (1.0-7.6); NEUTROPHILS PERCENT AUTO 81.2 % (40.0-78.1); PLATELET COUNT,PLT 244 K/uL (130-375); WHITE BLOOD CELL COUNT,WBC 7.5 K/uL (3.2-11.0)
[2023-12-29 13:38] LABS: APPEARANCE,URINE SLIGHTLY CLOUDY (CLEAR); BILIRUBIN,URINE NEGATIVE (NEGATIVE); COLOR,URINE YELLOW (YELLOW); GLUCOSE,URINE NEGATIVE (NEGATIVE); KETONES,URINE NEGATIVE (NEGATIVE); LEUKOCYTE ESTERASE,URINE NEGATIVE (NEGATIVE); NITRITE,URINE NEGATIVE (NEGATIVE); OCCULT BLOOD,URINE NEGATIVE (NEGATIVE); PROTEIN,URINE 100 mg/dL (NEGATIVE)
[2023-12-29 13:44] LABS: BACTERIA,URINE RARE; EPITHELIAL CELLS,URINE RARE; MUCUS,URINE MODERATE; RBC,URINE NOT SEEN (0-5); WBC,URINE 0-5 (0-5)
[2023-12-29 13:45] LABS: AMORPHOUS SEDIMENT,URINE MODERATE
[2023-12-29] MEDS: Nitroglycerin 0.4 MG Tab.SL SL ONE (13:58)
[2023-12-29] MEDS: Furosemide 40 MG/4 ML VIAL IVPUSH ONE ×2 (13:59→19:35)
[2023-12-29 14:06] LABS: A/G RATIO 1.2 (1.2-2.2); ALANINE AMINOTRANSFERASE,ALT 42 U/L (12-78); ALBUMIN 3.7 g/dL (3.4-5.0); ALKALINE PHOSPHATASE 117 U/L (46-116); ASPARTATE AMNIOTRANSFERASE,AST 21 U/L (15-37); BILIRUBIN TOTAL 0.6 mg/dL (0.2-1.0); BLOOD UREA NITROGEN,BUN 37 mg/dL (7-18); CALCIUM 9.2 mg/dL (8.5-10.1); CARBON DIOXIDE,CO2 26 mmol/L (21-32); CHLORIDE,CL 98 mmol/L (100-108); CREATININE 1.8 mg/dL (0.8-1.3); EST CRCL DRUG DOSING (CG) 41.23 mL/min; ESTIMATED GFR 39 mL/min (>60); GLUCOSE RANDOM 173 mg/dL (74-106); PRO B-TYPE NATRIUR PEPT,BNPPRO 3069 pg/mL (5-450); PROTEIN TOTAL,TP 6.8 g/dL (6.4-8.2); SODIUM,NA 135 mmol/L (140-148); TROPONIN I HIGH SENSITIVITY 25.3 pg/mL (<=60.3)
[2023-12-29] MEDS: Sodium Chloride 0.9% 10 ML Syringe FLUSH PRN (14:09)
[2023-12-29] MEDS: Sodium Chloride 0.9% 80 ML IV SCH (14:26)
[2023-12-29] MEDS: Iopamidol 612 MG/ML 100 ML Bottle IV SCH (14:26)
[2023-12-29] MEDS: Acetaminophen 325 MG Tab PO ONE (16:36)
[2023-12-29] MEDS ORDERED: Magnesium Hydroxide 400 MG/5 ML Susp 30 ML Cup PO PRN (17:53)
[2023-12-29] MEDS ORDERED: Sennosides/Docusate Sodium 50-8.6 MG Tab PO PRN (17:53)
[2023-12-29] MEDS ORDERED: Ondansetron 4 MG/2 ML SDV IV PRN (17:53)
[2023-12-29] MEDS ORDERED: Ondansetron 4 MG Tab.DIS PO PRN (17:53)
[2023-12-29] MEDS: Pantoprazole 40 MG Tab.CR PO SCH (19:28)
[2023-12-29] MEDS: Gabapentin 300 MG Cap PO SCH (19:28)
[2023-12-29] MEDS: Sodium Chloride 0.9% 10 ML Syringe FLUSH ONE (19:35)
[2023-12-29] MEDS: Rosuvastatin 10 MG Tab PO SCH (19:35)
[2023-12-29] MEDS: Furosemide 40 MG/4 ML VIAL ONE (19:37)
[2023-12-29] MEDS: Insulin Glargine,Human Rec. Analog 100 Units/ML 3 ML Pen SUBCUT SCH (21:18)
[2023-12-29] MEDS: Magnesium Oxide 400 MG Tab PO SCH (21:23)
[2023-12-29] MEDS: Insulin Lispro 100 Unit/ML 3 ML KwikPen SUBCUT SCH (21:24)
[2023-12-30] MEDS: Acetaminophen 325 MG Tab PO PRN (03:56)
[2023-12-30 05:20] LABS: HEMATOCRIT 35.6 % (38.4-49.7); HEMOGLOBIN 11.6 g/dL (12.9-16.9); MEAN CORPUSCULAR HEMOGLOBIN 30.9 pg (31.6-35.5); MEAN CORPUSCULAR HGB CONC 32.6 g/dL (31.6-35.5); MEAN CORPUSCULAR VOLUME 94.9 fL (81.4-99.0); RED BLOOD CELL COUNT 3.75 M/uL (4.14-5.76); WHITE BLOOD CELL COUNT,WBC 6.7 K/uL (3.2-11.0)
[2023-12-30 05:34] LABS: CALCIUM 9.1 mg/dL (8.5-10.1); CREATININE 2.1 mg/dL (0.8-1.3); EST CRCL DRUG DOSING (CG) 34.35 mL/min; POTASSIUM,K 4.2 mmol/L (3.6-5.2)
[2023-12-30 05:38] LABS: ANION GAP 13.2 mmol/L (5.0-14.0)
[2023-12-30] MEDS: Hydrochlorothiazide 12.5 MG Cap PO SCH (08:22)
[2023-12-30] MEDS: amLODIPine 5 MG Tab PO SCH (08:22)
[2023-12-30] MEDS: Metoprolol Succinate 50 MG Tab.ER PO SCH (08:23)
[2023-12-30] MEDS: Lisinopril 20 MG Tab PO SCH (08:24)
[2023-12-30 11:46] VITALS: BP 148/61; PULSE 80
== END 2023-12-30 14:22 | disposition home or self-care (01) | DRG 291 ==
LOC: JP.ED 11:46 → JP.MS 17:27
PROVIDERS: ADMIT Internal Medicine; ATTEND Internal Medicine
DX: I48.91 Unspecified atrial fibrillation (principal); I11.0 Hypertensive heart disease with heart failure; I50.9 Heart failure, unspecified; I13.0 Hypertensive heart and chronic kidney disease with heart failure and stage 1 through stage 4 chronic kidney disease, or unspecified chronic kidney disease; E11.9 Type 2 diabetes mellitus without complications; I50.23 Acute on chronic systolic (congestive) heart failure; J96.01 Acute respiratory failure with hypoxia; E78.00 Pure hypercholesterolemia, unspecified; N18.32 Chronic kidney disease, stage 3b; Z66 Do not resuscitate; D63.1 Anemia in chronic kidney disease; I48.0 Paroxysmal atrial fibrillation; E10.69 Type 1 diabetes mellitus with other specified complication; E10.22 Type 1 diabetes mellitus with diabetic chronic kidney disease; Z79.4 Long term (current) use of insulin; Z79.899 Other long term (current) drug therapy
CPT/HCPCS: 0241U; 36415; 71045; 74177; 80048; 80053; 81001; 82947; 83605; 83880; 84484; 85025; 85027; 93005; 93306; 96374; 99285; 99222; 99238; A9270-GY; J1815; J1815-GY; J1940; J3490; Q9967

== ENCOUNTER 2024-01-11 08:22 | Emergency (ER) | payer MEDICARE ==
[2024-01-11] MEDS ORDERED: Sodium Chloride 0.9% 10 ML Syringe FLUSH PRN (08:37)
[2024-01-11 08:58] LABS: BASOPHILS PERCENT AUTO 0.2 % (0.1-1.3); EOSINOPHILS ABSOLUTE AUTO 0.24 K/uL (0.00-0.40); EOSINOPHILS PERCENT AUTO 4.4 % (0.0-5.4); HEMOGLOBIN 12.8 g/dL (12.9-16.9); IMMATURE GRAN ABSOLUTE AUTO 0.03 K/uL (0.00-0.23); IMMATURE GRAN PERCENT AUTO 0.5 % (0.0-0.7); LYMPHOCYTES ABSOLUTE AUTO 0.57 K/uL (0.8-3.3); LYMPHOCYTES PERCENT AUTO 10.4 % (11.4-47.7); MEAN CORPUSCULAR HEMOGLOBIN 31.1 pg (31.6-35.5); MEAN CORPUSCULAR HGB CONC 33.7 g/dL (31.6-35.5); MEAN CORPUSCULAR VOLUME 92.2 fL (81.4-99.0); MONOCYTES ABSOLUTE AUTO 0.58 K/uL (0.20-0.90); MONOCYTES PERCENT AUTO 10.6 % (3.3-12.6); NEUTROPHILS ABSOLUTE AUTO 4.04 K/uL (1.0-7.6); NEUTROPHILS PERCENT AUTO 73.9 % (40.0-78.1); PLATELET COUNT,PLT 185 K/uL (130-375); RED BLOOD CELL COUNT 4.12 M/uL (4.14-5.76); WHITE BLOOD CELL COUNT,WBC 5.5 K/uL (3.2-11.0)
[2024-01-11 09:07] LABS: BASOPHILS ABSOLUTE AUTO 0.01 K/uL (0.00-0.10)
[2024-01-11 09:19] LABS: INR 1.1; PROTHROMBIN TIME 11.1 sec (9.2-10.6); PTT,PARTIAL THROMBOPLSTIN TIME 31.8 sec (21.8-27.3)
[2024-01-11 09:28] LABS: A/G RATIO 1.2 (1.2-2.2); ALANINE AMINOTRANSFERASE,ALT 35 U/L (12-78); ALKALINE PHOSPHATASE 104 U/L (46-116); ASPARTATE AMNIOTRANSFERASE,AST 25 U/L (15-37); BILIRUBIN TOTAL 0.4 mg/dL (0.2-1.0); BLOOD UREA NITROGEN,BUN 65 mg/dL (7-18); CALCIUM 9.4 mg/dL (8.5-10.1); CARBON DIOXIDE,CO2 26 mmol/L (21-32); CHLORIDE,CL 99 mmol/L (100-108); CREATININE 2.3 mg/dL (0.8-1.3); EST CRCL DRUG DOSING (CG) 31.36 mL/min; ESTIMATED GFR 29 mL/min (>60); GLUCOSE RANDOM 123 mg/dL (74-106); MAGNESIUM 1.8 mg/dL (1.8-2.4); POTASSIUM,K 4.2 mmol/L (3.6-5.2); PROTEIN TOTAL,TP 7.4 g/dL (6.4-8.2); SODIUM,NA 137 mmol/L (140-148)
[2024-01-11 09:29] LABS: ANION GAP 16.2 mmol/L (5.0-14.0)
[2024-01-11] MEDS: Sodium Chloride 0.9% 1,000 ML IV SCH (09:39)
[2024-01-11] MEDS ORDERED: Norepinephrine 8 MG in Dextrose 5% in Water 250 ML IV SCH (09:45)
[2024-01-11] MEDS: Norepinephrine 8 MG in Dextrose 5% in Water 250 ML IV SCH (09:47)
[2024-01-11] MEDS: Benzonatate 100 MG Cap PO ONE (10:27)
[2024-01-11] MEDS: Acetaminophen 325 MG Tab PO ONE (10:27)
[2024-01-11 10:39] LABS: APPEARANCE,URINE CLEAR (CLEAR); BILIRUBIN,URINE NEGATIVE (NEGATIVE); COLOR,URINE YELLOW (YELLOW); GLUCOSE,URINE 500 mg/dL (NEGATIVE); KETONES,URINE NEGATIVE (NEGATIVE); LEUKOCYTE ESTERASE,URINE NEGATIVE (NEGATIVE); NITRITE,URINE NEGATIVE (NEGATIVE); OCCULT BLOOD,URINE NEGATIVE (NEGATIVE); PH,URINE 5.5 (5.0-8.0); PROTEIN,URINE NEGATIVE (NEGATIVE); UROBILINOGEN,URINE 0.2 EU/dL (0.2-1.0)
[2024-01-11 10:50] LABS: AMORPHOUS SEDIMENT,URINE NOT SEEN; BACTERIA,URINE NOT SEEN; EPITHELIAL CELLS,URINE NOT SEEN; MUCUS,URINE NOT SEEN; RBC,URINE 0-5 (0-5); WBC,URINE NOT SEEN (0-5)
[2024-01-11 10:51] LABS: AMPHETAMINES SCREEN, URINE NEGATIVE (NEGATIVE); BARBITURATE SCREEN,URINE NEGATIVE (NEGATIVE); BENZODIAZEPINES SCREEN,URINE NEGATIVE (NEGATIVE); METHADONE SCREEN, URINE NEGATIVE (NEGATIVE); METHAMPHETAMINES SCREEN, URINE NEGATIVE (NEGATIVE); OXYCODONE SCREEN,URINE NEGATIVE (NEGATIVE); PROPOXYPHENE SCREEN,URINE NEGATIVE (NEGATIVE); THC SCREEN,URINE 50 NG/ML NEGATIVE (NEGATIVE)
[2024-01-11 15:18] VITALS: BP 165/92; PULSE 101
== END 2024-01-11 16:15 | disposition home or self-care (01) ==
LOC: JP.ED 08:22
DX: R55 Syncope and collapse (principal); I95.9 Hypotension, unspecified; J20.9 Acute bronchitis, unspecified; E86.0 Dehydration; I10 Essential (primary) hypertension; E78.00 Pure hypercholesterolemia, unspecified; E10.9 Type 1 diabetes mellitus without complications; Z79.82 Long term (current) use of aspirin; Z79.899 Other long term (current) drug therapy; Z79.4 Long term (current) use of insulin
CPT/HCPCS: 36415; 70450; 71046; 80053; 80305; 81001; 82947; 83605; 83735; 83880; 84443; 84484; 85025; 85610; 85730; 93005; 93010; 96361; 96365; 99284; 99285; A9270; J7030; J7060

== ENCOUNTER 2024-07-12 06:56 | Day surgery (SDC) | payer MEDICARE ==
[2024-07-12] MEDS ORDERED: fentaNYL 50 MCG/ML SDV ONE (07:27)
[2024-07-12] MEDS ORDERED: Propofol 200 MG/20 ML SDV ONE ×3 (07:27→09:25)
[2024-07-12 07:39] LABS: INR 1.2; PROTHROMBIN TIME 11.7 sec (9.2-10.6)
[2024-07-12] MEDS: Sodium Chloride 0.9% 1,000 ML IV SCH (07:58)
[2024-07-12 10:49] VITALS: BP 138/78; PULSE 76
== END 2024-07-12 11:05 | disposition home or self-care (01) ==
LOC: JP.SDS 06:56
PROVIDERS: ATTEND Surgery
DX: Z12.11 Encounter for screening for malignant neoplasm of colon (principal); D12.3 Benign neoplasm of transverse colon; D12.2 Benign neoplasm of ascending colon; D12.4 Benign neoplasm of descending colon; K63.5 Polyp of colon; K57.30 Diverticulosis of large intestine without perforation or abscess without bleeding; I13.0 Hypertensive heart and chronic kidney disease with heart failure and stage 1 through stage 4 chronic kidney disease, or unspecified chronic kidney disease; I50.9 Heart failure, unspecified; N18.30 Chronic kidney disease, stage 3 unspecified; E11.22 Type 2 diabetes mellitus with diabetic chronic kidney disease
CPT/HCPCS: 00813; 36415; 45380; 45385; 45390; 85610; 88305; J2704; J3010; J7030

== ENCOUNTER 2024-07-28 12:02 | Emergency (ER) | payer MEDICARE ==
[2024-07-28 13:16] LABS: BASOPHILS ABSOLUTE AUTO 0.04 K/uL (0.00-0.10); BASOPHILS PERCENT AUTO 0.5 % (0.1-1.3); EOSINOPHILS ABSOLUTE AUTO 0.27 K/uL (0.00-0.40); EOSINOPHILS PERCENT AUTO 3.6 % (0.0-5.4); HEMATOCRIT 29.8 % (38.4-49.7); HEMOGLOBIN 8.6 g/dL (12.9-16.9); IMMATURE GRAN PERCENT AUTO 0.3 % (0.0-0.7); LYMPHOCYTES ABSOLUTE AUTO 1.19 K/uL (0.8-3.3); MEAN CORPUSCULAR HEMOGLOBIN 21.2 pg (31.6-35.5); MEAN CORPUSCULAR HGB CONC 28.9 g/dL (31.6-35.5); MEAN CORPUSCULAR VOLUME 73.4 fL (81.4-99.0); MONOCYTES ABSOLUTE AUTO 0.65 K/uL (0.20-0.90); MONOCYTES PERCENT AUTO 8.7 % (3.3-12.6); NEUTROPHILS ABSOLUTE AUTO 5.29 K/uL (1.0-7.6); NEUTROPHILS PERCENT AUTO 70.9 % (40.0-78.1); PLATELET COUNT,PLT 248 K/uL (130-375); RED BLOOD CELL COUNT 4.06 M/uL (4.14-5.76); WHITE BLOOD CELL COUNT,WBC 7.5 K/uL (3.2-11.0)
[2024-07-28] MEDS: Sodium Chloride 0.9% 1,000 ML IV STA (13:31)
[2024-07-28 13:39] LABS: IMMATURE GRAN ABSOLUTE AUTO 0.02 K/uL (0.00-0.23)
[2024-07-28 13:46] LABS: A/G RATIO 1.1 (1.2-2.2); ALANINE AMINOTRANSFERASE,ALT 27 U/L (12-78); ALBUMIN 3.3 g/dL (3.4-5.0); ALKALINE PHOSPHATASE 140 U/L (46-116); ANION GAP 10.2 mmol/L (5.0-14.0); ASPARTATE AMNIOTRANSFERASE,AST 31 U/L (15-37); BILIRUBIN TOTAL 0.5 mg/dL (0.2-1.0); BLOOD UREA NITROGEN,BUN 38 mg/dL (7-18); CARBON DIOXIDE,CO2 25 mmol/L (21-32); CHLORIDE,CL 106 mmol/L (100-108); CREATININE 1.9 mg/dL (0.8-1.3); EST CRCL DRUG DOSING (CG) 39.53 mL/min; ESTIMATED GFR 36 mL/min (>60); GLUCOSE RANDOM 209 mg/dL (74-106); PROTEIN TOTAL,TP 6.2 g/dL (6.4-8.2); SODIUM,NA 141 mmol/L (140-148)
[2024-07-28] MEDS: Furosemide 40 MG/4 ML VIAL IVPUSH ONE (16:07)
[2024-07-28] MEDS: Sodium Chloride 0.9% 10 ML Syringe FLUSH PRN (16:08)
[2024-07-28 16:40] VITALS: BP 150/75; PULSE 63
== END 2024-07-28 17:10 | disposition home or self-care (01) ==
LOC: JP.ED 12:02
DX: I13.0 Hypertensive heart and chronic kidney disease with heart failure and stage 1 through stage 4 chronic kidney disease, or unspecified chronic kidney disease (principal); I50.23 Acute on chronic systolic (congestive) heart failure; N18.9 Chronic kidney disease, unspecified; E10.22 Type 1 diabetes mellitus with diabetic chronic kidney disease; Z79.899 Other long term (current) drug therapy; Z79.4 Long term (current) use of insulin; Z88.1 Allergy status to other antibiotic agents
CPT/HCPCS: 36415; 74176; 80053; 83605; 83880; 85025; 96361; 96374; 99284; J1940; J3490; J7030

== ENCOUNTER 2024-09-22 19:21 | Observation (INO) | payer MEDICARE ==
[2024-09-22 19:35] LABS: BASOPHILS ABSOLUTE AUTO 0.03 K/uL (0.00-0.10); BASOPHILS PERCENT AUTO 0.4 % (0.1-1.3); EOSINOPHILS ABSOLUTE AUTO 0.56 K/uL (0.00-0.40); EOSINOPHILS PERCENT AUTO 7.8 % (0.0-5.4); HEMATOCRIT 34.1 % (38.4-49.7); HEMOGLOBIN 10.2 g/dL (12.9-16.9); IMMATURE GRAN PERCENT AUTO 0.1 % (0.0-0.7); LYMPHOCYTES ABSOLUTE AUTO 0.74 K/uL (0.8-3.3); LYMPHOCYTES PERCENT AUTO 10.3 % (11.4-47.7); MEAN CORPUSCULAR HEMOGLOBIN 21.3 pg (31.6-35.5); MEAN CORPUSCULAR HGB CONC 29.9 g/dL (31.6-35.5); MEAN CORPUSCULAR VOLUME 71.3 fL (81.4-99.0); MONOCYTES ABSOLUTE AUTO 0.76 K/uL (0.20-0.90); MONOCYTES PERCENT AUTO 10.6 % (3.3-12.6); NEUTROPHILS PERCENT AUTO 70.8 % (40.0-78.1); PLATELET COUNT,PLT 282 K/uL (130-375); RED BLOOD CELL COUNT 4.78 M/uL (4.14-5.76); WHITE BLOOD CELL COUNT,WBC 7.2 K/uL (3.2-11.0)
[2024-09-22 19:36] LABS: IMMATURE GRAN ABSOLUTE AUTO 0.01 K/uL (0.00-0.23)
[2024-09-22 20:00] LABS: A/G RATIO 1.1 (1.2-2.2); ALANINE AMINOTRANSFERASE,ALT 31 U/L (12-78); ALBUMIN 3.8 g/dL (3.4-5.0); ALKALINE PHOSPHATASE 191 U/L (46-116); ASPARTATE AMNIOTRANSFERASE,AST 17 U/L (15-37); BILIRUBIN TOTAL 0.7 mg/dL (0.2-1.0); BLOOD UREA NITROGEN,BUN 49 mg/dL (7-18); CARBON DIOXIDE,CO2 34 mmol/L (21-32); CHLORIDE,CL 100 mmol/L (100-108); CREATININE 2.3 mg/dL (0.8-1.3); EST CRCL DRUG DOSING (CG) 29.99 mL/min; ESTIMATED GFR 29 mL/min (>60); GLUCOSE RANDOM 90 mg/dL (74-106); MAGNESIUM 1.9 mg/dL (1.8-2.4); POTASSIUM,K 3.7 mmol/L (3.6-5.2); PROTEIN TOTAL,TP 7.3 g/dL (6.4-8.2); SODIUM,NA 142 mmol/L (140-148); TROPONIN I HIGH SENSITIVITY 23.6 pg/mL (<=60.3)
[2024-09-22 20:01] LABS: ANION GAP 11.7 mmol/L (5.0-14.0)
[2024-09-22] MEDS: Lactated Ringers 500 ML IV SCH (20:28)
[2024-09-22 20:41] LABS: CREATINE KINASE,CK 130 U/L (39-308); PRO B-TYPE NATRIUR PEPT,BNPPRO 10323 pg/mL (5-450)
[2024-09-22 20:54] LABS: BASE EXCESS VENOUS 7.3 mm/L; BICARBONATE,VENOUS 32.6 mmol/L; METHEMOGLOBIN 0.9 %; O2 SATURATION VENOUS 27.5; OXYHEMOGLOBIN 26.7 %; PCO2 VENOUS 52.1 mm/Hg; PH,VENOUS 7.413 (7.350-7.450); TOTAL HEMOGLOBIN 10.6 g/dL (13.5-18.0)
[2024-09-22 21:00] LABS: PO2 VENOUS 23.8 mm/Hg
[2024-09-22] MEDS: Furosemide 40 MG/4 ML VIAL IVPUSH ONE (22:50)
[2024-09-22 23:19] LABS: APPEARANCE,URINE SLIGHTLY CLOUDY (CLEAR); BILIRUBIN,URINE NEGATIVE (NEGATIVE); COLOR,URINE YELLOW (YELLOW); GLUCOSE,URINE 100 mg/dL (NEGATIVE); KETONES,URINE NEGATIVE (NEGATIVE); LEUKOCYTE ESTERASE,URINE NEGATIVE (NEGATIVE); NITRITE,URINE NEGATIVE (NEGATIVE); OCCULT BLOOD,URINE MODERATE (NEGATIVE); PROTEIN,URINE 100 mg/dL (NEGATIVE); UROBILINOGEN,URINE 0.2 EU/dL (0.2-1.0)
[2024-09-22 23:25] LABS: AMORPHOUS SEDIMENT,URINE NOT SEEN; BACTERIA,URINE FEW; EPITHELIAL CELLS,URINE NOT SEEN; MUCUS,URINE NOT SEEN; WBC,URINE 0-5 (0-5)
[2024-09-22 23:28] LABS: CORONAVIRUS COVID-19 NAA NEGATIVE (NEGATIVE); INFLUENZA A NAA NEGATIVE (NEGATIVE); INFLUENZA B NAA NEGATIVE (NEGATIVE); RESPIRATORY SYNCYTIAL VIR NAA NEGATIVE (NEGATIVE)
[2024-09-22] MEDS ORDERED: LORazepam 2 MG/ML SDV IVPUSH PRN (23:46)
[2024-09-22] MEDS ORDERED: Melatonin 3 MG Tab PO PRN (23:46)
[2024-09-22] MEDS ORDERED: Acetaminophen 325 MG Tab PO PRN (23:46)
[2024-09-22] MEDS ORDERED: Glucagon,Human Recombinant 1 MG Vial IM PRN (23:46)
[2024-09-22] MEDS ORDERED: 50% Dextrose in Water 50 ML Syringe IVPUSH PRN (23:46)
[2024-09-23] MEDS: Insulin Lispro 100 Unit/ML 3 ML KwikPen SUBCUT ONE ×2 (00:20→09:14)
[2024-09-23] MEDS: Insulin Glargine,Human Rec. Analog 100 Units/ML 3 ML Pen SUBCUT SCH (00:21)
[2024-09-23] MEDS: Enoxaparin 40 MG/0.4 ML Syringe SUBCUT SCH (00:24)
[2024-09-23 04:57] LABS: HEMATOCRIT 30.9 % (38.4-49.7); HEMOGLOBIN 9.3 g/dL (12.9-16.9); MEAN CORPUSCULAR HEMOGLOBIN 21.4 pg (31.6-35.5); MEAN CORPUSCULAR HGB CONC 30.1 g/dL (31.6-35.5); RED BLOOD CELL COUNT 4.35 M/uL (4.14-5.76); WHITE BLOOD CELL COUNT,WBC 6.4 K/uL (3.2-11.0)
[2024-09-23 05:18] LABS: CALCIUM 8.7 mg/dL (8.5-10.1); CREATININE 2.2 mg/dL (0.8-1.3); EST CRCL DRUG DOSING (CG) 31.35 mL/min; POTASSIUM,K 4.3 mmol/L (3.6-5.2)
[2024-09-23 05:27] LABS: ANION GAP 9.3 mmol/L (5.0-14.0)
[2024-09-23 05:50] VITALS: BP 120/62; PULSE 71
[2024-09-23] MEDS ORDERED: 50% Dextrose in Water 50 ML Syringe IVPUSH PRN (08:56)
[2024-09-23] MEDS ORDERED: Glucagon,Human Recombinant 1 MG Vial IM PRN (08:56)
== END 2024-09-23 10:27 | disposition home or self-care (01) ==
LOC: JP.ED 19:21 → JP.MS 23:12
PROVIDERS: ADMIT Registered Nurse; ATTEND Internal Medicine
DX: I13.0 Hypertensive heart and chronic kidney disease with heart failure and stage 1 through stage 4 chronic kidney disease, or unspecified chronic kidney disease (principal); I50.22 Chronic systolic (congestive) heart failure; E10.22 Type 1 diabetes mellitus with diabetic chronic kidney disease; N18.32 Chronic kidney disease, stage 3b; R40.4 Transient alteration of awareness; E78.00 Pure hypercholesterolemia, unspecified; N17.9 Acute kidney failure, unspecified; I42.9 Cardiomyopathy, unspecified; I48.91 Unspecified atrial fibrillation; Z79.82 Long term (current) use of aspirin; Z79.899 Other long term (current) drug therapy
CPT/HCPCS: 0241U; 36415; 71045; 80048; 80053; 81001; 82550; 82803; 82947; 83735; 83880; 84484; 85025; 85027; 85379; 86140; 93005; 93010; 96361; 96374; 99222; 99238; 99285; G0378; J1815; J1940; J7120

== ENCOUNTER 2024-12-03 12:07 | Emergency (ER) | payer MEDICARE ==
[2024-12-03 12:23] VITALS: PULSE 71
[2024-12-03 13:05] LABS: APPEARANCE,URINE CLEAR (CLEAR); BILIRUBIN,URINE NEGATIVE (NEGATIVE); COLOR,URINE YELLOW (YELLOW); GLUCOSE,URINE NEGATIVE (NEGATIVE); KETONES,URINE NEGATIVE (NEGATIVE); LEUKOCYTE ESTERASE,URINE NEGATIVE (NEGATIVE); NITRITE,URINE NEGATIVE (NEGATIVE); OCCULT BLOOD,URINE NEGATIVE (NEGATIVE); PROTEIN,URINE 100 mg/dL (NEGATIVE); UROBILINOGEN,URINE 0.2 EU/dL (0.2-1.0)
[2024-12-03 13:06] LABS: EPITHELIAL CELLS,URINE NOT SEEN; RBC,URINE NOT SEEN (0-5); WBC,URINE NOT SEEN (0-5)
[2024-12-03 13:07] LABS: BACTERIA,URINE NOT SEEN
[2024-12-03 14:03] VITALS: BP 181/82
== END 2024-12-03 14:08 | disposition home or self-care (01) ==
LOC: JP.ED 12:07
DX: E10.649 Type 1 diabetes mellitus with hypoglycemia without coma (principal); T38.3X5A Adverse effect of insulin and oral hypoglycemic [antidiabetic] drugs, initial encounter; I12.9 Hypertensive chronic kidney disease with stage 1 through stage 4 chronic kidney disease, or unspecified chronic kidney disease; N18.9 Chronic kidney disease, unspecified; E78.00 Pure hypercholesterolemia, unspecified; M19.90 Unspecified osteoarthritis, unspecified site; E10.22 Type 1 diabetes mellitus with diabetic chronic kidney disease; Z86.73 Personal history of transient ischemic attack (TIA), and cerebral infarction without residual deficits; Z88.1 Allergy status to other antibiotic agents; Z79.4 Long term (current) use of insulin; Z79.51 Long term (current) use of inhaled steroids; Z79.82 Long term (current) use of aspirin; Z79.899 Other long term (current) drug therapy
CPT/HCPCS: 81001; 82947; 99284; 99285

== ENCOUNTER → 2025-01-03 | Day surgery (SDC) | payer MEDICARE ==
[~2025-01-03] MED LIST: Propofol 200 MG/20 ML SDV ONE; Sodium Chloride 0.9% 1,000 ML IV SCH; fentaNYL 100 MCG/2 ML SDV ONE; fentaNYL 50 MCG/ML SDV ONE
[2025-01-03] MEDS: Lactated Ringers 1,000 ML IV SCH (08:46)
[2025-01-03 10:26] VITALS: PULSE 51
[2025-01-03 10:40] VITALS: BP 171/81
== END ==
LOC: JP.SDS 07:38
PROVIDERS: ATTEND Surgery
DX: Z12.11 Encounter for screening for malignant neoplasm of colon (principal); D12.2 Benign neoplasm of ascending colon; K63.5 Polyp of colon; I13.0 Hypertensive heart and chronic kidney disease with heart failure and stage 1 through stage 4 chronic kidney disease, or unspecified chronic kidney disease; E11.22 Type 2 diabetes mellitus with diabetic chronic kidney disease; I50.9 Heart failure, unspecified; N18.9 Chronic kidney disease, unspecified; I25.10 Atherosclerotic heart disease of native coronary artery without angina pectoris; Z86.0100 Personal history of colon polyps, unspecified
CPT/HCPCS: 00811; 45385; 88305; J2704; J3010; J7120

== ENCOUNTER 2025-05-06 19:31 | Emergency (ER) | payer MEDICARE ==
[2025-05-06 19:42] VITALS: BP 183/67; PULSE 65
[2025-05-06 20:25] LABS: BASOPHILS PERCENT AUTO 0.3 % (0.1-1.3); EOSINOPHILS ABSOLUTE AUTO 0.17 K/uL (0.00-0.40); EOSINOPHILS PERCENT AUTO 2.4 % (0.0-5.4); IMMATURE GRAN ABSOLUTE AUTO 0.03 K/uL (0.00-0.23); IMMATURE GRAN PERCENT AUTO 0.4 % (0.0-0.7); LYMPHOCYTES ABSOLUTE AUTO 0.81 K/uL (0.8-3.3); LYMPHOCYTES PERCENT AUTO 11.7 % (11.4-47.7); MONOCYTES ABSOLUTE AUTO 0.40 K/uL (0.20-0.90); MONOCYTES PERCENT AUTO 5.8 % (3.3-12.6); NEUTROPHILS ABSOLUTE AUTO 5.52 K/uL (1.0-7.6); NEUTROPHILS PERCENT AUTO 79.4 % (40.0-78.1); PLATELET COUNT,PLT 150 K/uL (130-375); RED BLOOD CELL COUNT 4.02 M/uL (4.14-5.76); WHITE BLOOD CELL COUNT,WBC 7.0 K/uL (3.2-11.0)
[2025-05-06 20:27] LABS: BASOPHILS ABSOLUTE AUTO 0.02 K/uL (0.00-0.10)
[2025-05-06 20:41] LABS: BLOOD UREA NITROGEN,BUN 39.0 mg/dL (7-18); CARBON DIOXIDE,CO2 32.0 mmol/L (21-32); CHLORIDE,CL 105.0 mmol/L (100-108); CREATININE 1.9 mg/dL (0.8-1.3); EST CRCL DRUG DOSING (CG) 35.74 mL/min; ESTIMATED GFR 36.0 mL/min (>60); GLUCOSE RANDOM 141.0 mg/dL (74-106); POTASSIUM,K 4.1 mmol/L (3.6-5.2); SODIUM,NA 143.0 mmol/L (140-148)
== END 2025-05-06 21:06 | disposition home or self-care (01) ==
LOC: JP.ED 19:31
DX: E11.649 Type 2 diabetes mellitus with hypoglycemia without coma (principal); I12.9 Hypertensive chronic kidney disease with stage 1 through stage 4 chronic kidney disease, or unspecified chronic kidney disease; N18.9 Chronic kidney disease, unspecified; E11.22 Type 2 diabetes mellitus with diabetic chronic kidney disease; E78.00 Pure hypercholesterolemia, unspecified; I48.91 Unspecified atrial fibrillation; Z88.8 Allergy status to other drugs, medicaments and biological substances; Z79.4 Long term (current) use of insulin; Z79.899 Other long term (current) drug therapy; Z79.82 Long term (current) use of aspirin; Z79.02 Long term (current) use of antithrombotics/antiplatelets; Z86.73 Personal history of transient ischemic attack (TIA), and cerebral infarction without residual deficits
CPT/HCPCS: 36415; 80048; 85025; 99285